=== PATIENT | male | born 1950 | race Caucasian/White ===

== ENCOUNTER 2018-12-05 10:08 | Emergency (ER) | payer MEDICARE, OTHER ==
[~2018-12-05] VITALS: Ht 182.9 cm; Wt 90.7 kg
[~2018-12-05 10:08] MED LIST: ACET325 PO; AMLO5 PO; ASPI81CH PO; ATOR40TA PO; AZIT500 PO; BECLNI19AQ IH; CARV6.25 PO; CEPH500 PO; CLOP75 PO; CYCL10 PO; DIPH25; ERYT.5TO OS; ESCI20 PO; FLUC200 PO; HYDACE5 PO; HYDACE7.5 PO; LEVO750 PO; LISI20 PO; LORA1 PO; LORA2 PO; MECL25; MECL25 PO; METO25ER PO; MSM1000; MULVITA; OXYACE5T PO; POLTRIOPSO OS; PROM25; Prinivil10 MG PO; SIMV40 PO; TOBDEXOPSU OS; TRAM50 PO; WARF1
== END 2018-12-05 11:00 | disposition left against medical advice (07) ==
LOC: ER 10:08
DX: Z53.21 Procedure and treatment not carried out due to patient leaving prior to being seen by health care provider (principal)
CPT/HCPCS: 70450; 93005; 93010

== ENCOUNTER 2019-01-28 09:27 | Emergency (ER) | payer MEDICARE, OTHER ==
[~2019-01-28] VITALS: Ht 182.9 cm; Wt 90.7 kg
[2019-01-28 11:11] LABS: BASOPHILS ABSOLUTE AUTO 0.03 K/mm3 (0.00-0.23); BASOPHILS PERCENT AUTO 0 % (0-2); EOSINOPHILS ABSOLUTE AUTO 0.08 K/mm3 (0.00-0.68); EOSINOPHILS PERCENT AUTO 1 % (0-6); Hematocrit 45.5 % (37.0-53.0); Hemoglobin 14.6 g/dL (13.5-17.5); IMMATURE GRAN ABSOLUTE AUTO 0.04 K/mm3 (0.00-0.10); IMMATURE GRAN PERCENT AUTO 0 % (0-1); LYMPHOCYTES ABSOLUTE AUTO 1.19 K/mm3 (0.84-5.20); LYMPHOCYTES PERCENT AUTO 10 % (21-46); MONOCYTES ABSOLUTE AUTO 1.03 K/mm3 (0.16-1.47); MONOCYTES PERCENT AUTO 8 % (4-13); Mean Corpuscular HGB 31.8 pg (26.0-34.0); Mean Corpuscular HGB Conc 32.1 g/dL (31.5-36.5); Mean Corpuscular Volume 99 fL (80-100); Mean Platelet Volume 10.8 fL (9.1-12.4); NEUTROPHILS ABSOLUTE AUTO 10.01 K/mm3 (1.96-9.15); NEUTROPHILS PERCENT AUTO 81 % (41-73); Platelet Count 251 K/mm3 (150-400); RDW Coefficient Variation 13.8 % (11.7-14.2); RDW Standard Deviation 50.4 fL (35.1-46.3); Red Blood Cell Count 4.59 M/mm3 (4.30-5.90); White Blood Cell Count 12.38 K/mm3 (4.00-11.30)
[2019-01-28 11:12] LABS: Source, Urine Clean Catch
[2019-01-28 11:15] LABS: Bilirubin, Urine Neg (Neg); Blood, Urine 5+ (Neg); Glucose Qualitative, Urine Neg (Neg); Ketones, Urine Neg (Neg); Leukocyte Esterase, Urine 1+ (Neg); Nitrite, Urine Neg (Neg); Protein, Urine 2+ (Neg); Specific Gravity, Urine 1.025 (1.003-1.022); Urobilinogen, Urine 1+ (Normal)
[2019-01-28 11:36] LABS: Alanine Aminotransfer (ALT/SGP 41 U/L (12-78); Albumin, Blood 4.2 g/dL (3.4-5.0); Albumin/Globulin Ratio 1.1 (0.8-1.8); Alk Phos 56 U/L (50-136); Anion Gap 7 mmol/L (6-16); Aspartate Aminotrans (AST/SGOT 24 U/L (12-37); Bilirubin, Total 0.5 mg/dL (0.1-1.0); Blood Urea Nitrogen 16 mg/dL (8-24); Bun/Creatinine Ratio 15.5 (12.0-20.0); CO2, Blood 26 mmol/L (21-32); Chloride, Blood 108 mmol/L (98-108); Creatinine, Blood 1.03 mg/dL (0.60-1.20); Globulin, Blood 3.8 g/dL (2.2-4.0); Glomerular Filtration Rate >60 (60-); Glucose, Blood 132 mg/dL (70-99); Potassium, Blood 4.3 mmol/L (3.5-5.5); Sodium, Blood 141 mmol/L (136-145)
[2019-01-28 11:57] LABS: Color, Urine Yellow (P-Yellow)
[2019-01-28 11:58] LABS: Appearance, Urine Hazy (Clear); Bacteria Few /hpf; Mucus Light (0-Heavy); Squamous Epithelial Cells Few /hpf (Few)
== END 2019-01-28 13:21 | disposition home or self-care (01) ==
LOC: ER 09:27
PROVIDERS: Emergency Medicine
DX: R10.9 Unspecified abdominal pain (principal); I10 Essential (primary) hypertension; I25.2 Old myocardial infarction; Z79.891 Long term (current) use of opiate analgesic; Z88.2 Allergy status to sulfonamides; Z88.5 Allergy status to narcotic agent; Z79.899 Other long term (current) drug therapy; Z79.82 Long term (current) use of aspirin; Z79.02 Long term (current) use of antithrombotics/antiplatelets
CPT/HCPCS: 36415; 74177; 80053; 81001; 83690; 85025; 87086; 96374-59; 99284-25; J1885; Q9967

== ENCOUNTER → 2019-02-12 | Outpatient (CLI) | payer MEDICARE, OTHER ==
[2019-02-12 18:22] LABS: Source, Urine Clean Catch
[2019-02-12 19:54] LABS: Appearance, Urine Clear (Clear); Bilirubin, Urine Neg (Neg); Blood, Urine Neg (Neg); Color, Urine Yellow (P-Yellow); Glucose Qualitative, Urine Neg (Neg); Ketones, Urine Neg (Neg); Leukocyte Esterase, Urine Neg (Neg); Nitrite, Urine Neg (Neg); Protein, Urine Neg (Neg); Urobilinogen, Urine NORM (Normal)
== END | disposition home or self-care (01) ==
LOC: LAB SHORT 18:19 → LAB 18:19
PROVIDERS: Nurse Practitioner Family
DX: N20.0 Calculus of kidney (principal)
CPT/HCPCS: 81003

== ENCOUNTER → 2019-07-09 | Outpatient (CLI) | payer MEDICARE, OTHER ==
[~2019-07-09] MED LIST changes: +IBUP600 PO; +METPRE4DP PO; +Norco 5-325 Ta1 EACH PO
[2019-07-09 18:20] LABS: Anion Gap 2 mmol/L (6-16); Blood Urea Nitrogen 10 mg/dL (8-24); Bun/Creatinine Ratio 10.9 (12.0-20.0); CO2, Blood 28 mmol/L (21-32); Chloride, Blood 107 mmol/L (98-108); Creatinine, Blood 0.91 mg/dL (0.60-1.20); Glomerular Filtration Rate >60 (60-); Glucose, Blood 88 mg/dL (70-99); Potassium, Blood 4.5 mmol/L (3.5-5.5); Sodium, Blood 137 mmol/L (136-145)
== END | disposition home or self-care (01) ==
LOC: LAB 16:42 → LAB SHORT 16:42
PROVIDERS: Nurse Practitioner Family
DX: M54.17 Radiculopathy, lumbosacral region (principal)
CPT/HCPCS: 80048

== ENCOUNTER 2021-06-14 10:45 | Inpatient (IN) | payer OTHER ==
[~2021-06-14] VITALS: Ht 182.9 cm; Wt 95.2 kg
[2021-06-14 11:47] LABS: BASOPHILS ABSOLUTE AUTO 0.04 K/mm3 (0.00-0.23); BASOPHILS PERCENT AUTO 0 % (0-2); EOSINOPHILS ABSOLUTE AUTO 0.17 K/mm3 (0.00-0.68); EOSINOPHILS PERCENT AUTO 2 % (0-6); Hematocrit 44.2 % (37.0-53.0); Hemoglobin 14.5 g/dL (13.5-17.5); IMMATURE GRAN ABSOLUTE AUTO 0.03 K/mm3 (0.00-0.10); IMMATURE GRAN PERCENT AUTO 0 % (0-1); LYMPHOCYTES ABSOLUTE AUTO 1.74 K/mm3 (0.84-5.20); LYMPHOCYTES PERCENT AUTO 18 % (21-46); MONOCYTES ABSOLUTE AUTO 0.95 K/mm3 (0.16-1.47); MONOCYTES PERCENT AUTO 10 % (4-13); Mean Corpuscular HGB 31.3 pg (26.0-34.0); Mean Corpuscular HGB Conc 32.8 g/dL (31.5-36.5); Mean Corpuscular Volume 95 fL (80-100); Mean Platelet Volume 9.9 fL (9.1-12.4); NEUTROPHILS ABSOLUTE AUTO 6.99 K/mm3 (1.96-9.15); NEUTROPHILS PERCENT AUTO 71 % (41-73); Platelet Count 322 K/mm3 (150-400); RDW Coefficient Variation 13.7 % (11.7-14.2); RDW Standard Deviation 48.7 fL (35.1-46.3); Red Blood Cell Count 4.64 M/mm3 (4.30-5.90); White Blood Cell Count 9.92 K/mm3 (4.00-11.30)
[2021-06-14 12:00] LABS: Alanine Aminotransfer (ALT/SGP 28 U/L (12-78); Alk Phos 60 U/L (50-136); Anion Gap 3 mmol/L (6-16); Aspartate Aminotrans (AST/SGOT 17 U/L (12-37); Bilirubin, Total 0.4 mg/dL (0.1-1.0); Blood Urea Nitrogen 13 mg/dL (8-24); Bun/Creatinine Ratio 12.7 (12.0-20.0); CO2, Blood 28 mmol/L (21-32); Calcium, Blood 9.5 mg/dL (8.5-10.1); Chloride, Blood 107 mmol/L (98-108); Creatinine, Blood 1.02 mg/dL (0.60-1.20); Globulin, Blood 3.9 g/dL (2.2-4.0); Glomerular Filtration Rate >60 (60-); Glucose, Blood 109 mg/dL (70-99); Potassium, Blood 3.8 mmol/L (3.5-5.5); Sodium, Blood 138 mmol/L (136-145); Total Protein, Blood 7.9 g/dL (6.4-8.2)
[2021-06-14] MEDS ORDERED: REPATHA SU140 MG/1 M ID (18:35)
--- NOTE | 2021-06-15 07:56 | NUR ---
RN recvd handoff of patient care from night RN. Patient was alert and orient and awake in bed. Patient had no requests at this time.
--- NOTE | 2021-06-15 11:27 | NUR ---
Pt. was resting, but responded when I called his name. Pt. is known to me. Pt. verbalized gratitude that he was responding as well as he has. Pt. was unsettled by what "could have happened" based on others he has seen who have had a stroke. 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 Pt. displayed evidence of confidence and gratitude for his progress and for the visit. Prayed with Pt.
--- NOTE | 2021-06-15 15:47 | NUR ---
QUALITY ASSURANCE MONITOR FINAL ERROR: THIS RN RECEIVED TELEPHONE ORDER TO DISCONTINUE MRI FOR THIS PT. ACCIDENTLY ENTERED ORDER UNDER ACC MARLENA ALBA. UNABLE TO CORRECT IN [employer]. IMAGING NOTIFIED TO CANCEL UNDER THIS RN'S NAME.
--- NOTE | 2021-06-15 16:41 | NUR ---
Patient was alert and orient. He sat up in the chair when he was awake and laid in the bed when he took a nap. Patient stated that he couldn't remember this area. He knew the stores around but couldnt remember the area or the front of the hospital. Patient expessed to the provider. Patient was very pleasant and took his meds as ordered.
[2021-06-16 04:48] LABS: BASOPHILS ABSOLUTE AUTO 0.04 K/mm3 (0.00-0.23); BASOPHILS PERCENT AUTO 0 % (0-2); EOSINOPHILS ABSOLUTE AUTO 0.34 K/mm3 (0.00-0.68); EOSINOPHILS PERCENT AUTO 3 % (0-6); Hematocrit 46.9 % (37.0-53.0); Hemoglobin 15.3 g/dL (13.5-17.5); IMMATURE GRAN ABSOLUTE AUTO 0.02 K/mm3 (0.00-0.10); IMMATURE GRAN PERCENT AUTO 0 % (0-1); LYMPHOCYTES ABSOLUTE AUTO 2.27 K/mm3 (0.84-5.20); LYMPHOCYTES PERCENT AUTO 22 % (21-46); MONOCYTES ABSOLUTE AUTO 1.21 K/mm3 (0.16-1.47); MONOCYTES PERCENT AUTO 12 % (4-13); Mean Corpuscular HGB 30.9 pg (26.0-34.0); Mean Corpuscular HGB Conc 32.6 g/dL (31.5-36.5); Mean Corpuscular Volume 95 fL (80-100); Mean Platelet Volume 9.8 fL (9.1-12.4); NEUTROPHILS ABSOLUTE AUTO 6.41 K/mm3 (1.96-9.15); NEUTROPHILS PERCENT AUTO 62 % (41-73); Platelet Count 320 K/mm3 (150-400); RDW Coefficient Variation 13.7 % (11.7-14.2); RDW Standard Deviation 47.9 fL (35.1-46.3); Red Blood Cell Count 4.95 M/mm3 (4.30-5.90); White Blood Cell Count 10.29 K/mm3 (4.00-11.30)
[2021-06-16 05:14] LABS: Alanine Aminotransfer (ALT/SGP 39 U/L (12-78); Albumin, Blood 3.8 g/dL (3.4-5.0); Alk Phos 57 U/L (50-136); Anion Gap 5 mmol/L (6-16); Aspartate Aminotrans (AST/SGOT 19 U/L (12-37); Bilirubin, Total 0.5 mg/dL (0.1-1.0); Blood Urea Nitrogen 19 mg/dL (8-24); Bun/Creatinine Ratio 17.3 (12.0-20.0); CHOL/HDL RATIO 2.4; CO2, Blood 25 mmol/L (21-32); Calcium, Blood 9.3 mg/dL (8.5-10.1); Chloride, Blood 108 mmol/L (98-108); Cholesterol 111 mg/dL (50-200); Globulin, Blood 3.7 g/dL (2.2-4.0); Glomerular Filtration Rate >60 (60-); Glucose, Blood 100 mg/dL (70-99); HDL Cholesterol 46 mg/dL (>39); Low Density Lipoprotein Chol 48 mg/dL (0-110); Potassium, Blood 4.6 mmol/L (3.5-5.5); Sodium, Blood 138 mmol/L (136-145); Total Protein, Blood 7.5 g/dL (6.4-8.2); Triglycerides 85 mg/dL (30-160); Very Low Density Lipoprot Chol 17 mg/dL (6-32)
--- NOTE | 2021-06-16 08:38 | NUR ---
RN recvd handoff of patient care from PIETRO Pacheco Patient was awake and alert in bed/ He requested 'a cup of coffee'. He had no other requests
[2021-06-16] MEDS ORDERED: CLOP75 PO (14:32)
--- NOTE | 2021-06-16 15:13 | NUR ---
PT DISCHARGED 1500 WITH DISCHARGE INSTRUCTION- RX FAXED TO [facility]. SENT HOME WITH BELONGINGS
--- NOTE | 2021-06-16 15:15 | NUR ---
Patient was alert and orient. He discharged from the unit at 1445, he was assisted by tech off of the unit. The discharge instructions, medications, and information on disease process was explained to patient prior to his discharge.
== END 2021-06-16 15:06 | disposition home or self-care (01) | DRG 66 ==
LOC: ER 10:45 → MEDS 14:58
PROVIDERS: Internal Medicine; Physician Assistant; ADMIT Internal Medicine
DX: I63.9 Cerebral infarction, unspecified (principal); H53.462 Homonymous bilateral field defects, left side; E78.5 Hyperlipidemia, unspecified; I10 Essential (primary) hypertension; I25.10 Atherosclerotic heart disease of native coronary artery without angina pectoris; Z53.29 Procedure and treatment not carried out because of patient's decision for other reasons; Z95.5 Presence of coronary angioplasty implant and graft; Z87.891 Personal history of nicotine dependence; Z98.890 Other specified postprocedural states; Z88.2 Allergy status to sulfonamides; Z88.6 Allergy status to analgesic agent; Z79.82 Long term (current) use of aspirin
CPT/HCPCS: 36415; 70450; 70496; 70498; 80053; 80061; 82947; 83090; 85025; 93005; 93010; 94660; 94762; 97110; 97161; 97165; 97535; 99285-25; A9270; C8929; J1650; Q9957; Q9967

== ENCOUNTER 2023-03-02 09:47 | Emergency (ER) | payer OTHER ==
[~2023-03-02] VITALS: Ht 182.9 cm; Wt 86.2 kg
[~2023-03-02 09:47] MED LIST changes: +REPATHA SU140 MG/1 M ID
[2023-03-02 10:20] VITALS: BP 147/84
[2023-03-02 11:16] LABS: BASOPHILS ABSOLUTE AUTO 0.04 K/mm3 (0.00-0.23); BASOPHILS PERCENT AUTO 0 % (0-2); EOSINOPHILS ABSOLUTE AUTO 0.21 K/mm3 (0.00-0.68); EOSINOPHILS PERCENT AUTO 2 % (0-6); Hematocrit 40.7 % (37.0-53.0); Hemoglobin 13.5 g/dL (13.5-17.5); IMMATURE GRAN ABSOLUTE AUTO 0.02 K/mm3 (0.00-0.10); IMMATURE GRAN PERCENT AUTO 0 % (0-1); LYMPHOCYTES ABSOLUTE AUTO 1.59 K/mm3 (0.84-5.20); LYMPHOCYTES PERCENT AUTO 18 % (21-46); MONOCYTES ABSOLUTE AUTO 1.23 K/mm3 (0.16-1.47); MONOCYTES PERCENT AUTO 14 % (4-13); Mean Corpuscular HGB 32.1 pg (26.0-34.0); Mean Corpuscular HGB Conc 33.2 g/dL (31.5-36.5); Mean Corpuscular Volume 97 fL (80-100); Mean Platelet Volume 10.2 fL (9.1-12.4); NEUTROPHILS ABSOLUTE AUTO 5.91 K/mm3 (1.96-9.15); NEUTROPHILS PERCENT AUTO 66 % (41-73); Platelet Count 265 K/mm3 (150-400); RDW Standard Deviation 49.9 fL (35.1-46.3)
[2023-03-02 11:35] LABS: Albumin, Blood 3.6 g/dL (3.4-5.0); Bilirubin, Total 0.6 mg/dL (0.1-1.0); Bun/Creatinine Ratio 10.2 (12.0-20.0); Calcium, Blood 8.7 mg/dL (8.5-10.1); Creatinine, Blood 1.28 mg/dL (0.60-1.20); Globulin, Blood 3.5 g/dL (2.2-4.0); Potassium, Blood 4.1 mmol/L (3.5-5.5); Total Protein, Blood 7.1 g/dL (6.4-8.2)
[2023-03-02] MEDS ORDERED: METO10 PO (13:41)
== END 2023-03-02 13:45 | disposition home or self-care (01) ==
LOC: ER 09:47
PROVIDERS: Physician Assistant
DX: R51.9 Headache, unspecified (principal); N17.9 Acute kidney failure, unspecified; Z88.5 Allergy status to narcotic agent; Z88.2 Allergy status to sulfonamides; Z79.899 Other long term (current) drug therapy; Z79.82 Long term (current) use of aspirin; G47.33 Obstructive sleep apnea (adult) (pediatric); I10 Essential (primary) hypertension; Z87.891 Personal history of nicotine dependence
CPT/HCPCS: 70450; 80053; 85025; 93005; 93010; 96361; 96374; 96375; 99284-25; A9270; J1885; J2765; J7030

== ENCOUNTER 2023-09-20 20:12 | Inpatient (IN) | payer OTHER ==
[~2023-09-20] VITALS: Ht 177.8 cm; Wt 88.6 kg
[~2023-09-20 20:12] MED LIST changes: +AZIT250 PO; +METO10 PO; +PRED20 PO; +SERT50 PO; +TRELEGY ELLIPT1 EAC1 INH; +VISBIOME 112.51 EACH PO
[2023-09-20] MEDS ORDERED: levETIRAcetam 1,500 MG in NS 100 ML IV ONE (20:20)
[2023-09-20 20:35] LABS: Hematocrit 45.2 % (37.0-53.0); Hemoglobin 13.9 g/dL (13.5-17.5); Mean Corpuscular HGB 31.3 pg (26.0-34.0); Mean Corpuscular HGB Conc 30.8 g/dL (31.5-36.5); Mean Corpuscular Volume 102 fL (80-100); Mean Platelet Volume 10.2 fL (9.1-12.4); Platelet Count 352 K/mm3 (150-400); RDW Coefficient Variation 15.3 % (11.7-14.2); RDW Standard Deviation 58.5 fL (35.1-46.3); Red Blood Cell Count 4.44 M/mm3 (4.30-5.90); White Blood Cell Count 17.94 K/mm3 (4.00-11.30)
[2023-09-20 20:53] LABS: Albumin, Blood 4.1 g/dL (3.4-5.0); Bilirubin, Total 0.4 mg/dL (0.1-1.0); Bun/Creatinine Ratio 14.7 (12.0-20.0); Calcium, Blood 9.6 mg/dL (8.5-10.1); Creatinine, Blood 1.02 mg/dL (0.60-1.20); Globulin, Blood 4.1 g/dL (2.2-4.0); Potassium, Blood 3.5 mmol/L (3.5-5.5); Total Protein, Blood 8.2 g/dL (6.4-8.2)
[2023-09-20 21:19] LABS: BASOPHILS PERCENT MAN 0 % (0-2); EOSINOPHILS PERCENT MAN 0 % (0-6); LYMPHOCYTES ABSOLUTE MAN 5.92 K/mm3 (0.84-5.20); LYMPHOCYTES PERCENT MAN 33 % (21-46); MONOCYTES ABSOLUTE MAN 1.07 K/mm3 (0.16-1.47); MONOCYTES PERCENT MAN 6 % (4-13); NEUTROPHILS ABSOLUTE MAN 10.94 K/mm3 (1.96-9.15); SEG NEUTROPHILS PERCENT MAN 61 % (41-73); TOTAL CELLS COUNTED 100
[2023-09-20] MEDS ORDERED: LEVE500 PO (22:06)
[2023-09-20] MEDS ORDERED: Aspirin 81 MG Chew PO ONE (23:20)
[2023-09-20 23:25] LABS: Source, Urine Clean Catch
[2023-09-20] MEDS ORDERED: NS 1,000 ML IV SCH (23:25)
[2023-09-20 23:27] LABS: Bilirubin, Urine Neg (Neg); Blood, Urine 2+ (Neg); Glucose Qualitative, Urine Neg (Neg); Ketones, Urine 1+ (Neg); Leukocyte Esterase, Urine Neg (Neg); Nitrite, Urine Neg (Neg); Protein, Urine 2+ (Neg); Specific Gravity, Urine 1.025 (1.003-1.022); Urobilinogen, Urine NORM (Normal)
[2023-09-20 23:32] LABS: Appearance, Urine Clear (Clear); Color, Urine Yellow (P-Yellow)
[2023-09-20 23:34] LABS: Amorphous Light (0-Heavy); Bacteria Not Seen /hpf; Red Blood Cells, Urine 0-2 /hpf (0-2); Squamous Epithelial Cells Not Seen /hpf (Few); White Blood Cells, Urine Not Seen /hpf (0-5)
[2023-09-20 23:55] LABS: U Amphetamine Screen Not Detected; U Barbituate Screen Not Detected; U Benzodiazapine Screen Not Detected; U Buprenorphine Screen Not Detected; U Cannabinoids Screen DETECTED; U Cocaine Screen Not Detected; U Methadone Screen Not Detected; U Methamphetamine Screen Not Detected; U Opiates Screen Not Detected; U Oxycodone Screen Not Detected; U Phencyclidine Screen Not Detected
[2023-09-20 23:59] LABS: Magnesium, Blood 2.3 mg/dL (1.6-2.4); Phosphorus, Blood 5.4 mg/dL (2.5-4.9)
[2023-09-21 00:21] LABS: International Normalized Ratio 1.07; Prothrombin Time Results 11.4 Sec (9.7-11.5)
[2023-09-21] MEDS ORDERED: Ondansetron HCl 2 MG / ML 2ML Vial IV PRN (00:40)
[2023-09-21] MEDS ORDERED: Meclizine HCl 25 MG Tab PO PRN (00:50)
[2023-09-21] MEDS ORDERED: Sodium Bicarb 8.4% Inj 100 MEQ in Sodium Chloride 0.45% 1,000 ML IV ONE (00:55)
[2023-09-21] MEDS ORDERED: Sodium Bicarb 8.4% 1 MEQ/ML 50 ML Vial IV ONE (01:00)
[2023-09-21] MEDS ORDERED: Insulin Glargine-Yfgn 100 Unit/mL 3 ML SYR SC SCH (01:00)
[2023-09-21 01:02] LABS: Bun/Creatinine Ratio 13.6 (12.0-20.0); Calcium, Blood 9.1 mg/dL (8.5-10.1); Creatinine, Blood 1.03 mg/dL (0.60-1.20); Potassium, Blood 3.9 mmol/L (3.5-5.5)
[2023-09-21 01:52] LABS: Bilirubin, Total 0.4 mg/dL (0.1-1.0); Bun/Creatinine Ratio 13.5 (12.0-20.0); Calcium, Blood 7.9 mg/dL (8.5-10.1); Creatinine, Blood 0.89 mg/dL (0.60-1.20); Globulin, Blood 3.1 g/dL (2.2-4.0); Potassium, Blood 3.3 mmol/L (3.5-5.5)
[2023-09-21 01:54] LABS: Total Protein, Blood 6.1 g/dL (6.4-8.2)
[2023-09-21] MEDS ORDERED: NS 1,000 ML IV ONE (02:55)
[2023-09-21] MEDS ORDERED: Potassium Chloride 40 MEQ in NS 250 ML IV ONE (03:05)
[2023-09-21 03:14] VITALS: BP 134/57
[2023-09-21] MEDS ORDERED: FLUC200 PO (03:19)
[2023-09-21] MEDS ORDERED: ROSUVASTATIN CA20 MG PO (03:19)
--- NOTE | 2023-09-21 03:53 | NUR ---
PT ARRIVED TO FLOOR VIA STRETCHER, ACCOMPANIED BY SIGNIFICANT OTHER ARLENE. HR 37-45, PT DENIES CP/PALPITATIONS. TELEMETRY APPLIED, REPORTED SR IN 70S INITIALLY. AIR CARRIER MAINTENANCE INSPECTOR LATER CALLED TO CONFIRM PT HAVING BIGEMINY. DR. CHERY AT BEDSIDE AND NOTIFIED OF EVENTS, EKG COMPLETED, RESULTS REVIEWED BY MD. NO ADDITIONAL ORDERS AT THIS TIME. IVF AND POTASSIUM CURRENTLY INFUSING. RT PLACED PT ON HOSPTITAL BIPAP HE DID NOT BRING IN HIS TRILOGY FROM HOME. ARLENE, SIG OTHER, TO BRING IN MEDICATION LIST AND TRILOGY WHEN SHE COMES BACK IN THE AM. PT RESTING WITH EYES CLOSED, DENIES ANY NEEDS AT THIS TIME.
[2023-09-21] MEDS ORDERED: Tiotropium Bromide 2.5 MCG/ACT MIST INHAL (10 ACT/4 GM) INH SCH (06:20)
[2023-09-21] MEDS ORDERED: Mometasone/Formoterol MDI 200/5 mcg 13 GM INH SCH (06:20)
[2023-09-21] MEDS ORDERED: Insulin Human Lispro 100 Units/ML 3ML Syringe SC SCH (07:30)
[2023-09-21 07:58] LABS: Calcium, Blood 8.9 mg/dL (8.5-10.1); Potassium, Blood 4.8 mmol/L (3.5-5.5)
[2023-09-21] MEDS ORDERED: Enoxaparin 40 MG/0.4 ML SYR SC SCH (09:00)
[2023-09-21] MEDS ORDERED: LevETIRAcetam 500 MG Tab PO SCH ×2 (09:00→21:00)
[2023-09-21] MEDS ORDERED: Clopidogrel Bisulfate 75 MG Tab PO SCH (09:00)
[2023-09-21] MEDS ORDERED: levETIRAcetam 1,000 MG in NS 100 ML IV SCH (09:00)
[2023-09-21] MEDS ORDERED: Aspirin 81 MG Chew PO SCH (09:00)
[2023-09-21 09:06] VITALS: BP 121/69
[2023-09-21 13:03] LABS: BASOPHILS ABSOLUTE AUTO 0.05 K/mm3 (0.00-0.23); BASOPHILS PERCENT AUTO 1 % (0-2); EOSINOPHILS PERCENT AUTO 1 % (0-6); Hematocrit 37.6 % (37.0-53.0); Hemoglobin 12.6 g/dL (13.5-17.5); IMMATURE GRAN ABSOLUTE AUTO 0.02 K/mm3 (0.00-0.10); IMMATURE GRAN PERCENT AUTO 0 % (0-1); LYMPHOCYTES ABSOLUTE AUTO 1.39 K/mm3 (0.84-5.20); LYMPHOCYTES PERCENT AUTO 13 % (21-46); MONOCYTES ABSOLUTE AUTO 1.16 K/mm3 (0.16-1.47); MONOCYTES PERCENT AUTO 11 % (4-13); Mean Corpuscular HGB 31.8 pg (26.0-34.0); Mean Corpuscular HGB Conc 33.5 g/dL (31.5-36.5); Mean Platelet Volume 9.7 fL (9.1-12.4); NEUTROPHILS ABSOLUTE AUTO 7.75 K/mm3 (1.96-9.15); NEUTROPHILS PERCENT AUTO 74 % (41-73); Platelet Count 276 K/mm3 (150-400); RDW Coefficient Variation 15.4 % (11.7-14.2); RDW Standard Deviation 53.8 fL (35.1-46.3); Red Blood Cell Count 3.96 M/mm3 (4.30-5.90); White Blood Cell Count 10.47 K/mm3 (4.00-11.30)
[2023-09-21 13:06] LABS: Mean Corpuscular Volume 95 fL (80-100)
[2023-09-21 13:23] LABS: Albumin, Blood 3.3 g/dL (3.4-5.0); Bilirubin, Total 0.7 mg/dL (0.1-1.0); Bun/Creatinine Ratio 10.8 (12.0-20.0); Calcium, Blood 8.8 mg/dL (8.5-10.1); Creatinine, Blood 1.02 mg/dL (0.60-1.20); Globulin, Blood 3.3 g/dL (2.2-4.0); Potassium, Blood 4.1 mmol/L (3.5-5.5); Total Protein, Blood 6.6 g/dL (6.4-8.2)
[2023-09-21 15:36] VITALS: BP 128/71
[2023-09-21 19:38] VITALS: BP 122/68
[2023-09-21 19:39] LABS: Bun/Creatinine Ratio 9.5 (12.0-20.0); Creatinine, Blood 1.05 mg/dL (0.60-1.20); Potassium, Blood 4.2 mmol/L (3.5-5.5)
--- NOTE | 2023-09-21 19:44 | NUR ---
SHIFT SUMMARY PATIENT WITH NO ACUTE EVENTS DURING SHIFT. BED ALARM ON . HE IS ABLE TO MAKE NEEDS KOWN. FAMILY AT BEDSIDE. CALL LIGHT IN REACH.
--- NOTE | 2023-09-21 20:21 | NUR ---
NOTIFIED BY TELE OF PT'S HR BRIEFLY DROP TO 28. PT ASYMPTOMATIC, VSTia RUSHING NP HOSPITALIST NOTIFIED, NO NEW ORDERS REGARDING HR AT THIS TIME. CLARIFIED ORDERS FOR KEPPRA: ORDERS RECD TO D/C IV KEPPRA AND CHANGE PO KEPPRA DOSE.
[2023-09-22 03:11] VITALS: BP 141/81
[2023-09-22 05:11] LABS: BASOPHILS ABSOLUTE AUTO 0.06 K/mm3 (0.00-0.23); BASOPHILS PERCENT AUTO 1 % (0-2); EOSINOPHILS ABSOLUTE AUTO 0.19 K/mm3 (0.00-0.68); EOSINOPHILS PERCENT AUTO 2 % (0-6); Hematocrit 36.9 % (37.0-53.0); Hemoglobin 12.3 g/dL (13.5-17.5); IMMATURE GRAN ABSOLUTE AUTO 0.02 K/mm3 (0.00-0.10); IMMATURE GRAN PERCENT AUTO 0 % (0-1); LYMPHOCYTES ABSOLUTE AUTO 1.81 K/mm3 (0.84-5.20); LYMPHOCYTES PERCENT AUTO 21 % (21-46); MONOCYTES ABSOLUTE AUTO 0.96 K/mm3 (0.16-1.47); MONOCYTES PERCENT AUTO 11 % (4-13); Mean Corpuscular HGB 31.9 pg (26.0-34.0); Mean Corpuscular HGB Conc 33.3 g/dL (31.5-36.5); Mean Corpuscular Volume 96 fL (80-100); Mean Platelet Volume 10.3 fL (9.1-12.4); NEUTROPHILS ABSOLUTE AUTO 5.79 K/mm3 (1.96-9.15); NEUTROPHILS PERCENT AUTO 66 % (41-73); Platelet Count 277 K/mm3 (150-400); RDW Coefficient Variation 15.5 % (11.7-14.2); RDW Standard Deviation 54.9 fL (35.1-46.3); Red Blood Cell Count 3.86 M/mm3 (4.30-5.90); White Blood Cell Count 8.83 K/mm3 (4.00-11.30)
--- NOTE | 2023-09-22 05:34 | NUR ---
END OF SHIFT SUMMARY PT A&OX4, FORGETFUL AT TIMES. DOES NOT REMEMBER EVENTS LEADING UP TO OR SURROUNDING SEIZURE. C/O RIGHT SHOULDER PAIN WITH MOVEMENT ONLY. SLEPT WELL WITH BIPAP, NO O2 BLEED. PT CONTINUES SB/SR ON TELE, RATE 60S WITH BRIEF DROPS. SEE PREVIOUS NOTE.
[2023-09-22 05:44] LABS: Bun/Creatinine Ratio 12.1 (12.0-20.0); Calcium, Blood 9.1 mg/dL (8.5-10.1); Creatinine, Blood 0.91 mg/dL (0.60-1.20)
[2023-09-22 07:33] VITALS: BP 148/77
[2023-09-22] MEDS ORDERED: Acetaminophen 325 MG TABLET PO PRN (07:45)
--- NOTE | 2023-09-22 11:54 | NUR ---
Pt. is awake in bed and welcomes my visit. Kristina Paez is at bedside. Facilitated an update of the Pts. incident and admission. Pt. is known to this craft recruiter from the community. Consdiered matters of carl and belief. Pt. displayed evidence of being alert and engaged, though also displays some slurred speech Prayed with the Pt. Pt. and kristina requested that this craft recruiter communicate to [place] members of their carl community and I have done so.
[2023-09-22] MEDS ORDERED: LEVETIRACETAM1000 M1 PO (14:57)
--- NOTE | 2023-09-22 15:18 | NUR ---
Patient ready for discharge, reviewed new medications with patient and spouse. Verbalized understanding. PT evaluated and treated, plan for HH. Cardiology placed zio patch, instructed patient on use. No seizures this shift. Patient left unit at 1520.
== END 2023-09-22 15:28 | disposition home or self-care (01) | DRG 101 ==
LOC: ER 20:12 → MEDS 20:13
PROVIDERS: Emergency Medicine; Student in an Organized Health Care Education/Training Program; ADMIT Internal Medicine
PROC: 5A09357 Assistance with Respiratory Ventilation, Less than 24 Consecutive Hours, Continuous Positive Airway Pressure (ICD-10-PCS; principal; 2023-09-21)
DX: R56.9 Unspecified convulsions (principal); E87.20 Acidosis, unspecified; I25.10 Atherosclerotic heart disease of native coronary artery without angina pectoris; I10 Essential (primary) hypertension; F12.10 Cannabis abuse, uncomplicated; E87.6 Hypokalemia; E11.9 Type 2 diabetes mellitus without complications; M25.511 Pain in right shoulder; J44.9 Chronic obstructive pulmonary disease, unspecified; G47.33 Obstructive sleep apnea (adult) (pediatric); Z79.82 Long term (current) use of aspirin; I25.2 Old myocardial infarction; Z79.899 Other long term (current) drug therapy; Z86.73 Personal history of transient ischemic attack (TIA), and cerebral infarction without residual deficits; Z88.2 Allergy status to sulfonamides; Z88.5 Allergy status to narcotic agent; Z87.891 Personal history of nicotine dependence; Z98.890 Other specified postprocedural states; Z95.5 Presence of coronary angioplasty implant and graft
CPT/HCPCS: 36415; 70450; 70496; 70498; 70551; 71045; 73030; 80048; 80053; 81001; 82607; 82947; 83735; 83880; 84100; 84145; 85025; 85610; 85730; 93005; 93010; 93246; 94640; 94660; 94664; 94762; 96365-59; 96372; 96375; 96376; 97112; 97116; 97161; 99285-25; A9270; C8929; G0378; J1650; J1815; J1953; J3480; J7030; J7050; Q9957; Q9967

== ENCOUNTER 2024-03-11 06:07 | Day surgery (SDC) | payer OTHER ==
[~2024-03-11] VITALS: Ht 182.9 cm; Wt 88.0 kg
[~2024-03-11 06:07] MED LIST changes: +ALBU90OI INH; +LEVE500 PO; +LEVETIRACETAM1000 M1 PO; +MELO7.5 PO; +MULTIVITAMIN PO; +PSYSENPA PO; +ROSUVASTATIN CA20 MG PO; +TADA10TA; +THERA-D2000 UNIT PO; +TRELEGY ELLIPT1 EAC1 IH
--- NOTE | 2024-03-11 08:48 | NUR ---
PT VERBALIZED UNDERSTANDING OF WRITTEN AND VERBAL D/C INST. PT AMB OUT OF THE DEPARTMENT /S DIFFICULTY.
== END 2024-03-11 23:51 | disposition home or self-care (01) ==
LOC: MHTC 06:07
DX: I48.91 Unspecified atrial fibrillation (principal); I25.10 Atherosclerotic heart disease of native coronary artery without angina pectoris; I10 Essential (primary) hypertension; I47.10 Supraventricular tachycardia, unspecified; E78.49 Other hyperlipidemia; I25.2 Old myocardial infarction; F33.9 Major depressive disorder, recurrent, unspecified; E03.9 Hypothyroidism, unspecified; Z79.82 Long term (current) use of aspirin; Z88.2 Allergy status to sulfonamides; Z88.8 Allergy status to other drugs, medicaments and biological substances; G40.909 Epilepsy, unspecified, not intractable, without status epilepticus
CPT/HCPCS: 33285; C1764

== ENCOUNTER 2024-06-11 10:33 | Day surgery (SDC) | payer OTHER ==
[~2024-06-11] VITALS: Ht 182.9 cm; Wt 89.4 kg
[~2024-06-11 10:33] MED LIST changes: +Balanced Salt Epinephrine Irrigation Solution 500 mL IR SCH; +FLUTICASONE PRO12 G1; +Lidocaine HCl/Pf 1% 5 ML VIAL XX SCH; +MULVITA PO; +Moxifloxacin HCL 0.5 MG/0.1 ML 0.4MLSYR RIGHTEYE SCH; +PHENYLEPHRINE\\TROPICAMIDE\\TETRACAINE OPHTHALMIC DILATING SOLN RIGHTEYE PRN; +PSYLLIUM HUSK PO; +Povidone-Iodine 450 DROP/30 ML Solution RIGHTEYE SCH; +RED YEAST RICE PO
[2024-06-11] MEDS ORDERED: Diazepam 5 MG Tab ONE (11:04)
[2024-06-11] MEDS ORDERED: Diazepam 2 MG Tab ONE (11:04)
[2024-06-11] MEDS ORDERED: LEVETIRACETAM50014 PO (11:25)
[2024-06-11] MEDS ORDERED: METOPROLOL SUCC25 MG PO (11:25)
--- NOTE | 2024-06-11 11:36 | NUR ---
06/11/24 [place] Halie Verma 1113: ANXIETY 0/10 ON SCALE PER PATIENT 1118: 7 MG PO VALIUM GIVEN PER ORDERS
[2024-06-11] MEDS ORDERED: Tetracaine HCl 0.5% Opth Soln 15 ml RIGHTEYE ONE (11:45)
[2024-06-11 12:11] VITALS: BP 144/73
[2024-06-11] MEDS ORDERED: Povidone-Iodine 450 DROP/30 ML Solution XX ONE (15:35)
== END 2024-06-11 12:30 | disposition home or self-care (01) ==
LOC: ORSCSDS 10:33
PROVIDERS: Student in an Organized Health Care Education/Training Program
PROC: 08RJ3JZ Replacement of Right Lens with Synthetic Substitute, Percutaneous Approach (ICD-10-PCS; principal; 2024-06-11 12:00)
DX: H25.813 Combined forms of age-related cataract, bilateral (principal); H04.123 Dry eye syndrome of bilateral lacrimal glands; H02.839 Dermatochalasis of unspecified eye, unspecified eyelid; I10 Essential (primary) hypertension; J44.9 Chronic obstructive pulmonary disease, unspecified; Z87.891 Personal history of nicotine dependence; I48.91 Unspecified atrial fibrillation; F32.9 Major depressive disorder, single episode, unspecified; F41.9 Anxiety disorder, unspecified; I25.10 Atherosclerotic heart disease of native coronary artery without angina pectoris; E78.5 Hyperlipidemia, unspecified; E03.9 Hypothyroidism, unspecified; I25.2 Old myocardial infarction; Z79.899 Other long term (current) drug therapy
CPT/HCPCS: A9270; V2632

== ENCOUNTER 2024-06-18 09:06 | Day surgery (SDC) | payer OTHER ==
[~2024-06-18] VITALS: Ht 182.9 cm; Wt 89.9 kg
[~2024-06-18 09:06] MED LIST changes: +LEVETIRACETAM50014 PO; +METOPROLOL SUCC25 MG PO; +Moxifloxacin HCL 0.5 MG/0.1 ML 0.4MLSYR LEFTEYE SCH; -Moxifloxacin HCL 0.5 MG/0.1 ML 0.4MLSYR RIGHTEYE SCH; +PHENYLEPHRINE\\TROPICAMIDE\\TETRACAINE OPHTHALMIC DILATING SOLN LEFTEYE PRN; -PHENYLEPHRINE\\TROPICAMIDE\\TETRACAINE OPHTHALMIC DILATING SOLN RIGHTEYE PRN; +Povidone-Iodine 450 DROP/30 ML Solution LEFTEYE SCH; +Povidone-Iodine 450 DROP/30 ML Solution ONE; -Povidone-Iodine 450 DROP/30 ML Solution RIGHTEYE SCH; +Tetracaine HCl/Pf 0.5% Opth Soln 4 ml ONE
[2024-06-18] MEDS ORDERED: Diazepam 5 MG Tab ONE (09:25)
[2024-06-18] MEDS ORDERED: Diazepam 2 MG Tab ONE (09:25)
[2024-06-18] MEDS ORDERED: Ondansetron HCl 2 MG / ML 2ML Vial ONE (10:03)
[2024-06-18 11:01] VITALS: BP 150/90
== END 2024-06-18 11:00 | disposition home or self-care (01) ==
LOC: ORSCSDS 09:06
PROVIDERS: Student in an Organized Health Care Education/Training Program
PROC: 08RK3JZ Replacement of Left Lens with Synthetic Substitute, Percutaneous Approach (ICD-10-PCS; principal; 2024-06-18 10:30)
DX: H25.812 Combined forms of age-related cataract, left eye (principal); Z96.1 Presence of intraocular lens; H04.123 Dry eye syndrome of bilateral lacrimal glands; H02.839 Dermatochalasis of unspecified eye, unspecified eyelid; G47.33 Obstructive sleep apnea (adult) (pediatric); I10 Essential (primary) hypertension; I21.9 Acute myocardial infarction, unspecified; J44.9 Chronic obstructive pulmonary disease, unspecified; I25.10 Atherosclerotic heart disease of native coronary artery without angina pectoris; F41.9 Anxiety disorder, unspecified; F32.A Depression, unspecified; I48.91 Unspecified atrial fibrillation; Z86.73 Personal history of transient ischemic attack (TIA), and cerebral infarction without residual deficits; R56.9 Unspecified convulsions; Z87.891 Personal history of nicotine dependence; Z79.82 Long term (current) use of aspirin; Z79.899 Other long term (current) drug therapy
CPT/HCPCS: A9270; J2405; V2632

== ENCOUNTER 2025-01-03 11:26 | Emergency (ER) | payer OTHER ==
[~2025-01-03] VITALS: Ht 182.9 cm; Wt 88.9 kg
[~2025-01-03 11:26] MED LIST changes: -Balanced Salt Epinephrine Irrigation Solution 500 mL IR SCH; -Lidocaine HCl/Pf 1% 5 ML VIAL XX SCH; -Moxifloxacin HCL 0.5 MG/0.1 ML 0.4MLSYR LEFTEYE SCH; -PHENYLEPHRINE\\TROPICAMIDE\\TETRACAINE OPHTHALMIC DILATING SOLN LEFTEYE PRN; -Povidone-Iodine 450 DROP/30 ML Solution LEFTEYE SCH; -Povidone-Iodine 450 DROP/30 ML Solution ONE; -Tetracaine HCl/Pf 0.5% Opth Soln 4 ml ONE
[2025-01-03 12:09] LABS: BASOPHILS ABSOLUTE AUTO 0.05 K/mm3 (0.00-0.23); BASOPHILS PERCENT AUTO 0 % (0-2); EOSINOPHILS ABSOLUTE AUTO 0.14 K/mm3 (0.00-0.68); EOSINOPHILS PERCENT AUTO 1 % (0-6); Hematocrit 44.5 % (37.0-53.0); Hemoglobin 14.5 g/dL (13.5-17.5); IMMATURE GRAN ABSOLUTE AUTO 0.05 K/mm3 (0.00-0.10); IMMATURE GRAN PERCENT AUTO 0 % (0-1); LYMPHOCYTES ABSOLUTE AUTO 1.78 K/mm3 (0.84-5.20); LYMPHOCYTES PERCENT AUTO 16 % (21-46); MONOCYTES ABSOLUTE AUTO 1.45 K/mm3 (0.16-1.47); MONOCYTES PERCENT AUTO 13 % (4-13); Mean Corpuscular HGB Conc 32.6 g/dL (31.5-36.5); Mean Corpuscular Volume 96 fL (80-100); NEUTROPHILS ABSOLUTE AUTO 7.80 K/mm3 (1.96-9.15); NEUTROPHILS PERCENT AUTO 69 % (41-73); NRBC ABSOLUTE 0.00 K/mm3 (0.00-0.02); NRBC Auto 0.0 /100 WBC (0.0-0.2); Platelet Count 283 K/mm3 (150-400); RDW Coefficient Variation 13.7 % (11.7-14.2); RDW Standard Deviation 48.7 fL (35.1-46.3)
[2025-01-03 12:42] LABS: Alanine Aminotransfer (ALT/SGP 23.0 U/L (12-78); Albumin, Blood 3.6 g/dL (3.4-5.0); Albumin/Globulin Ratio 0.8 (0.8-1.8); Anion Gap 7.0 mmol/L (3-11); Aspartate Aminotrans (AST/SGOT 21.0 U/L (12-37); Bilirubin, Total 0.6 mg/dL (0.1-1.0); Blood Urea Nitrogen 18.0 mg/dL (8-24); CO2, Blood 29.0 mmol/L (21-32); Calcium, Blood 9.0 mg/dL (8.5-10.1); Chloride, Blood 106.0 mmol/L (98-108); Creatinine, Blood 1.09 mg/dL (0.60-1.20); Globulin, Blood 4.3 g/dL (2.2-4.0); Glucose, Blood 86.0 mg/dL (70-99); Potassium, Blood 4.7 mmol/L (3.5-5.5); Sodium, Blood 137.0 mmol/L (136-145); Total Protein, Blood 7.9 g/dL (6.4-8.2)
[2025-01-03 14:30] VITALS: BP 144/74
== END 2025-01-03 14:48 | disposition home or self-care (01) ==
LOC: ER 11:26
PROVIDERS: Emergency Medicine
DX: R51.9 Headache, unspecified (principal); Z88.2 Allergy status to sulfonamides; Z79.82 Long term (current) use of aspirin; Z79.899 Other long term (current) drug therapy; Z87.891 Personal history of nicotine dependence; G47.33 Obstructive sleep apnea (adult) (pediatric)
CPT/HCPCS: 70450; 80053; 85025; 93005; 93010; 99284-25